=== PATIENT | male | born 1940 | race Caucasian/White ===

== ENCOUNTER → 2018-09-04 | Day surgery (SDC) | payer MEDICARE, BC ==
[2006-03-13 12:45] VITALS: TEMP 100.7
[~2018-09-04] MED LIST: ASPIRIN 81M81 MG/TA2 PO; BETAPACE 120MG120 MG PO; CELEBREX 200MG200 MG PO; CENA K20 MEQ/15 PO; CEPHALEXIN500 M1 PO; CORDARONE200 MG/TAB PO; COUMADIN 2MG2 MG/TAB PO; COUMADIN 5MG5 MG/TAB PO; FISH OIL500 MG PO; LASIX 40MG TABL40 MG PO; LOVENOX120 MG/0.8 SQ; MASON NATURAL1200 MG PO; MULTI VITAMINS1 TAB PO; OXY IR5 MG PO; TOPROL XL 50MG50 MG PO; TRIAMC 0.1 454 TOP; ZESTRIL30 MG PO; ZIAC 5/6.25MG T1 TAB PO; ZOCOR 40MG40 MG PO; ZYLOPRIM 300MG300 MG PO
== END ==
LOC: SDCO 06:00
DX: Z12.11 Encounter for screening for malignant neoplasm of colon (principal); Z86.010 Personal history of colon polyps; K57.30 Diverticulosis of large intestine without perforation or abscess without bleeding; M10.9 Gout, unspecified; I10 Essential (primary) hypertension; E78.00 Pure hypercholesterolemia, unspecified; I48.91 Unspecified atrial fibrillation; Z79.899 Other long term (current) drug therapy; Z79.01 Long term (current) use of anticoagulants; Z79.82 Long term (current) use of aspirin
CPT/HCPCS: J2250; J2405; J3010

== ENCOUNTER 2020-05-19 13:24 | Inpatient (IN) | payer MEDICARE, BC ==
[~2020-05-19] VITALS: Ht 182.9 cm; Wt 105.9 kg
[2020-05-19 14:04] LABS: BASO % 0.2 % (0.0-2.0); GRAN # 9.3 (1.4-6.5); GRAN % 76.9 % (42.2-75.2); HEMATOCRIT 39.9 % (42.0-52.0); HEMOGLOBIN 14.1 g/dl (13.5-18.0); LYMPH % 16.7 % (20.0-51.0); MEAN CELL VOLUME 91 fl (80.0-100.0); MEAN CORPUSCULAR HEMOGLOBIN 32 pg (27.0-31.0); MEAN CORPUSCULAR HGB CONC 35 g/dl (33.0-37.0); MEAN PLATELET VOLUME 9.5 fl (7.4-10.4); MONO # 0.7 (0.1-0.6); MONO % 5.9 % (1.7-9.3); PLATELET COUNT 166 K/mm3 (130-400); RED BLOOD COUNT 4.37 M/mm3 (4.20-5.60); REDCELL DISTRIBUTION WIDTH-CV 12.6 % (11.5-14.5)
[2020-05-19 14:09] LABS: INR 1.2 (0.8-3.0)
[2020-05-19 14:49] LABS: ALANINE AMINOTRANSFERASE 18 U/L (4-49); ALBUMIN 4.1 gm/dL (3.5-5.0); ALKALINE PHOSPHATASE 80 U/L (50-136); ANION GAP 10 mmol/L (7-16); AST,SGOT 43 U/L (15-37); BILIRUBIN,TOTAL 0.6 mg/dL (0.0-1.0); BLOOD UREA NITROGEN 16 mg/dL (9-20); CALCIUM 9.1 mg/dL (8.4-10.2); CARBON DIOXIDE 27 mmol/L (22-30); CHLORIDE 93 mmol/L (98-107); CREATININE, serum 0.85 (0.66-1.25); GLUCOSE 146 mg/dL (74-106); SODIUM 130 mmol/L (137-145); TOTAL PROTEIN 7.2 gm/dL (6.4-8.2)
[2020-05-19 14:59] LABS: C-REACTIVE PROTEIN < 0.5 mg/dL (0.0-0.9)
[2020-05-19 17:11] LABS: COLLECTION METHOD CLEAN CATCH
[2020-05-19 17:17] LABS: MUCOUS Present /lpf; PH 6 (5-8); SQUAMOUS EPITHELIAL None Seen /hpf; URINE APPEARANCE Clear; URINE BACTERIA None Seen /hpf; URINE BILIRUBIN Negative (NEGATIVE); URINE BLOOD Negative (NEGATIVE); URINE COLOR Yellow; URINE GLUCOSE Negative (NEGATIVE); URINE KETONE Negative (NEGATIVE); URINE LEUKOCYTE ESTERASE Negative (NEGATIVE); URINE NITRATE Negative (NEGATIVE); URINE PROTEIN(semi-quant) Negative (NEGATIVE); URINE RBC 0-2 /hpf; URINE UROBILINOGEN Negative (NEGATIVE)
--- NOTE | 2020-05-19 20:15 | NUR ---
Pt arrived to room at this time from the ED. Pt alert and oriented x3. Neuro check WNL other than pt experiencing some expressive aphasia. Denies pain. INT to left AC CDI. Pt denies any other needs at this time. Bed alarm on. Call light within reach. Will continue to monitor
[2020-05-19 21:28] VITALS: BP 174/83; PULSE 72; TEMP 101.2
--- NOTE | 2020-05-19 23:17 | NUR ---
Admission B form completed and documented. Pt alert and oriented x3. Neuro check remains WNL other than expressive aphasia. Pt denies pain. Pt not able to verify home medications with RN. Med rec reviewed and updated with patients over the phone who was able to verify medications and doses. Pt denies any needs/concerns. Call light within reach. Bed alarm on. Will continue to monitor.
[2020-05-19 23:34] VITALS: BP 130/68; PULSE 71; TEMP 99.4
--- NOTE | 2020-05-19 23:41 | NUR ---
Report given to LORY Sotomayor
[2020-05-20] VITALS (8 sets, daily range): BP systolic 129–162; BP diastolic 75–88; PULSE 77–94; TEMP 99.6–102.8
--- NOTE | 2020-05-20 02:09 | NUR ---
Resting in bed asleep. Call light in reach.
--- NOTE | 2020-05-20 04:00 | NUR ---
Resting in bed. Denies needs. Call light in reach.
--- NOTE | 2020-05-20 06:33 | NUR ---
Patient temp this AM 102.7. Given PRN tylenol and decreased room temp. Otherwise uneventful night. Resting in bed this AM. Call light in reach.
[2020-05-20 06:49] LABS: BASO % 0.3 % (0.0-2.0); EOS % 0.1 % (0-4.0); GRAN # 7.7 (1.4-6.5); GRAN % 66.1 % (42.2-75.2); HEMATOCRIT 37.5 % (42.0-52.0); HEMOGLOBIN 13.3 g/dl (13.5-18.0); LYMPH # 2.9 (1.2-3.4); LYMPH % 24.4 % (20.0-51.0); MEAN CELL VOLUME 91 fl (80.0-100.0); MEAN CORPUSCULAR HEMOGLOBIN 32 pg (27.0-31.0); MEAN CORPUSCULAR HGB CONC 36 g/dl (33.0-37.0); MEAN PLATELET VOLUME 10.6 fl (7.4-10.4); MONO % 8.8 % (1.7-9.3); PLATELET COUNT 145 K/mm3 (130-400); RED BLOOD COUNT 4.12 M/mm3 (4.20-5.60); REDCELL DISTRIBUTION WIDTH-CV 12.6 % (11.5-14.5)
--- NOTE | 2020-05-20 06:51 | NUR ---
Report given to LORY Herr
[2020-05-20 07:02] LABS: ALBUMIN 3.6 gm/dL (3.5-5.0); BILIRUBIN,TOTAL 0.8 mg/dL (0.0-1.0); CALCIUM 8.7 mg/dL (8.4-10.2); CHOLESTEROL RISK RATIO 4.4; CREATININE, serum 0.77 (0.66-1.25); POTASSIUM 3.7 mmol/L (3.4-5.0); TOTAL PROTEIN 6.4 gm/dL (6.4-8.2)
--- NOTE | 2020-05-20 10:05 | NUR ---
Client resting in bed comfortably upon enter the room. Client alert and oriented. No signs and sympotoms of pain or discomfort. Client denies pain. Client walks to the bathroom independently to void with steady gait. Scheduled morning meds given. Client tolerated well. Call light within reach. Client denied any need at this time.
--- NOTE | 2020-05-20 10:33 | NUR ---
Received bedside report from awake overnight counselor Bunny
--- NOTE | 2020-05-20 13:08 | NUR ---
attempted to call but there was no answer.
--- NOTE | 2020-05-20 13:31 | NUR ---
Vancomycin Initial Dosing Pharmacy Note Ordering provider: Bro Esteves MD Indication/duration: Bloodstream infection, FUO LABS: eCrCl~90 mL/min Recommendation: Loading dose: 2 grams 05/20/20 Maintenance dose: 1 gram every 12 hours Trough goal: 15-20 ug/mL Pharmacy will continue to follow.
--- NOTE | 2020-05-20 18:31 | NUR ---
Patient appears confused and oriented to person only at 1800. Left hand IV site swollen and infiltrated. Left hand IV removed. Elevated left hand and applied warm compression. Call Left within reach and bed at lowest setting. Fall precaution maintained. Isolation precuation maintained. Will give report to shift leader RN.
[2020-05-20 20:11] LABS: PROCALCITONIN <0.05 ng/mL (0.00-0.09)
--- NOTE | 2020-05-20 21:30 | NUR ---
Resting in bed. Assessment complete. Lungs diminished. Heart sounds normal. Bowels active x4. Pulses present throughout. No edema noted. INT left AC infusing. Denies pain. Patient alert to self, confused otherwise. Bed alarm in place. Denies needs. Call light in reach.
--- NOTE | 2020-05-20 23:25 | NUR ---
Resting in bed. Denies needs. Call light in reach.
[2020-05-21] VITALS (7 sets, daily range): BP systolic 118–155; BP diastolic 66–90; PULSE 73–87; TEMP 98.6–102.7
--- NOTE | 2020-05-21 01:52 | NUR ---
Temp 100.6. Given PRN tylenol.
--- NOTE | 2020-05-21 06:07 | NUR ---
Patient had uneventful night. Resting in bed this AM. Call light in reach.
--- NOTE | 2020-05-21 06:08 | NUR ---
Patient required tylenol for fevers throughout night. Otherwise uneventful night. Resting in bed this AM. Call light in reach.
[2020-05-21 06:52] LABS: BASO % 0.4 % (0.0-2.0); EOS % 0.1 % (0-4.0); GRAN # 5.7 (1.4-6.5); GRAN % 58.1 % (42.2-75.2); HEMATOCRIT 37.7 % (42.0-52.0); HEMOGLOBIN 13.4 g/dl (13.5-18.0); LYMPH # 2.9 (1.2-3.4); LYMPH % 28.8 % (20.0-51.0); MEAN CELL VOLUME 90 fl (80.0-100.0); MEAN CORPUSCULAR HEMOGLOBIN 32 pg (27.0-31.0); MEAN CORPUSCULAR HGB CONC 36 g/dl (33.0-37.0); MONO # 1.2 (0.1-0.6); MONO % 12.3 % (1.7-9.3); PLATELET COUNT 153 K/mm3 (130-400); RED BLOOD COUNT 4.17 M/mm3 (4.20-5.60); REDCELL DISTRIBUTION WIDTH-CV 12.4 % (11.5-14.5)
--- NOTE | 2020-05-21 07:00 | NUR ---
Report received from LORY Sotomayor. PT in bed resting, denies needs, will continue to monitor.
--- NOTE | 2020-05-21 07:09 | NUR ---
Report given to LORY Herr
[2020-05-21 07:15] LABS: ALBUMIN 3.4 gm/dL (3.5-5.0); BILIRUBIN,TOTAL 0.9 mg/dL (0.0-1.0); CALCIUM 8.6 mg/dL (8.4-10.2); CREATININE, serum 0.89 (0.66-1.25); MAGNESIUM 2.1 mg/dL (1.6-2.3); POTASSIUM 3.5 mmol/L (3.4-5.0); TOTAL PROTEIN 6.1 gm/dL (6.4-8.2)
--- NOTE | 2020-05-21 08:29 | NUR ---
Assessment charted. PT continues to be febrile this am, states he has no idea he is febrile. Able to answer all questons appropriately but does need some time to gather the answers before expressing them. Denies pain, denies needs, nausea or diarrhea. Taking PO well. Resting in bed. INT to LA/c and RFA. Will continue to monitor.
--- NOTE | 2020-05-21 13:29 | NUR ---
Patient could not tolerate interview at this time, and so SW contacted patients Alyse to complete intake interview. Patient currently resides in [facility] with his Alyse [phone] as care support and EMR. Patient was independent with ADL's and patients is listed as DPOA as well as his children. Patient does not utilize any DME, and his PCP is Dr. Marks, with no upcoming appointments. Patient gets his mediactions from [employer], and [employer] with no concerns. Patients was interested in possible home health services, however would need more information on what was available. She did indicated that he had services before however she did not remember who with.We did discuss a couple over the phone. However she opted to wait until it was determined when she would be able to come up to the hospital to see her . She indicated that when she spoke to the nurse before she was informed that he had a fever. SW will continue to follow.
--- NOTE | 2020-05-21 17:24 | NUR ---
PT moved over to regular medical unit today when COVID19 results were negative. Pt doing well, updated daughter and of changes and results and status update. Pt did well most of day but became increasingly confused this evening and has been elevated back to a high fall risk as he almost fell out of bed this evening. Will monitor and give bedside shift report to [facility] nurse who will resume car.e
[2020-05-22] VITALS (8 sets, daily range): BP systolic 103–128; BP diastolic 58–90; PULSE 71–82; TEMP 98.2–100.1
[2020-05-22 06:49] LABS: BASO # 0.1 (0.0-0.2); BASO % 0.6 % (0.0-2.0); EOS % 0.2 % (0-4.0); GRAN # 5.4 (1.4-6.5); HEMOGLOBIN 12.8 g/dl (13.5-18.0); LYMPH # 2.9 (1.2-3.4); MEAN CELL VOLUME 90 fl (80.0-100.0); MEAN CORPUSCULAR HEMOGLOBIN 33 pg (27.0-31.0); MEAN CORPUSCULAR HGB CONC 37 g/dl (33.0-37.0); MEAN PLATELET VOLUME 10.2 fl (7.4-10.4); MONO # 1.1 (0.1-0.6); MONO % 11.9 % (1.7-9.3); PLATELET COUNT 151 K/mm3 (130-400); RED BLOOD COUNT 3.87 M/mm3 (4.20-5.60); REDCELL DISTRIBUTION WIDTH-CV 12.7 % (11.5-14.5)
[2020-05-22 07:00] LABS: HEMATOCRIT 34.7 % (42.0-52.0)
--- NOTE | 2020-05-22 07:00 | NUR ---
Report received from LORY Rodriguez. PT in bed resting, awakens easily upon entry, will continue to monitor.
[2020-05-22 07:02] LABS: ALBUMIN 3.1 gm/dL (3.5-5.0); BILIRUBIN,TOTAL 0.7 mg/dL (0.0-1.0); CREATININE, serum 0.87 (0.66-1.25); TOTAL PROTEIN 5.7 gm/dL (6.4-8.2)
[2020-05-22 07:04] LABS: POTASSIUM 2.8 mmol/L (3.4-5.0)
[2020-05-22 07:16] LABS: MAGNESIUM 2.1 mg/dL (1.6-2.3)
--- NOTE | 2020-05-22 07:25 | NUR ---
CHANGE OF SHIFT REPORT GIVEN TO DAY SHIFT, CAT.
[2020-05-22 09:50] LABS: INR 1.4 (0.8-3.0); PROTHROMBIN TIME 15.3 SECONDS (9.7-12.8)
--- NOTE | 2020-05-22 10:08 | NUR ---
Vancomycin Follow-up Pharmacy Note Current regimen: VANCOMYCIN 1G Q12H Vancomycin trough: 9 Adjustments: INCREASE TO VANCOMYCIN 1.25G Q12H
--- NOTE | 2020-05-22 11:56 | NUR ---
First visit from the fibreglass lay up worker. No needs right now.
--- NOTE | 2020-05-22 13:11 | NUR ---
Assessment charted. pT curretnly off floor for procedure. Appeared to be more confused this amorning, had intermittent aphasia with answering questions but able to eventually answer all questions. Denies pian, still having fevers at times. INT removed to RFA d/t infiltration. IVF to LAC. WIll continue to monitor.
--- NOTE | 2020-05-22 19:48 | NUR ---
Pt has done well this afternoon. UPdate provided to both Mohini and Alyse Cullen at bedside this afternoon. Pt continues to have intermittent aphasia and was unsteady up to bathroom this evening. IV potassium completing. Denies pain, taking PO well, bedside shift report given to nightshift nurse who will resume care.
[2020-05-23 00:27] VITALS: BP 117/66; PULSE 72; TEMP 98.5
[2020-05-23 04:18] VITALS: BP 106/60; PULSE 74; TEMP 98.6
[2020-05-23 07:06] LABS: BASO % 0.5 % (0.0-2.0); EOS # 0.1 (0.0-0.7); GRAN # 4.6 (1.4-6.5); GRAN % 58.1 % (42.2-75.2); HEMATOCRIT 34.3 % (42.0-52.0); HEMOGLOBIN 11.9 g/dl (13.5-18.0); LYMPH # 2.4 (1.2-3.4); LYMPH % 30.7 % (20.0-51.0); MEAN CELL VOLUME 91 fl (80.0-100.0); MEAN CORPUSCULAR HEMOGLOBIN 32 pg (27.0-31.0); MEAN CORPUSCULAR HGB CONC 35 g/dl (33.0-37.0); MEAN PLATELET VOLUME 10.3 fl (7.4-10.4); MONO # 0.7 (0.1-0.6); MONO % 9.3 % (1.7-9.3); PLATELET COUNT 136 K/mm3 (130-400); RED BLOOD COUNT 3.76 M/mm3 (4.20-5.60); REDCELL DISTRIBUTION WIDTH-CV 13.1 % (11.5-14.5)
[2020-05-23 07:08] LABS: INR 1.3 (0.8-3.0)
[2020-05-23 07:24] LABS: CALCIUM 7.9 mg/dL (8.4-10.2); CREATININE, serum 0.86 (0.66-1.25); MAGNESIUM 2.2 mg/dL (1.6-2.3); POTASSIUM 3.6 mmol/L (3.4-5.0)
[2020-05-23 07:31] VITALS: BP 115/70; PULSE 80; TEMP 97.9
--- NOTE | 2020-05-23 08:04 | NUR ---
CHANGE OF SHIFT REPORT GIVEN TO DAY SHIFT NURSE, JOHN.
--- NOTE | 2020-05-23 10:56 | NUR ---
Pt assessment completed and charted, medications administered per sep. Pt alert and partially oriented, some aphasia noted. Pt occasionally has difficulty finding thoughts. Speech is clear, strength WNL, no difficulty swallowing. Pt denies pain, dizziness, N/V/D, chest pain. Pt ambulated w/PT to bathroom, per PT- pt did ok, assessment yesterday stated pt did well, today pt seemed a little off balance. Pt did ok w/ SBA. LAC IV flushes well, no issues, Vanc started. No edema noted, LS cta, BS active X4, pulses strong bilaterally. HR irregular, pt on tele. No further needs expressed at this time. Call light within reach.
[2020-05-23 12:02] VITALS: BP 92/60; PULSE 74; TEMP 97.9
[2020-05-23 12:25] LABS: LYME DISEASE ANTIBODIES Negative (Negative)
--- NOTE | 2020-05-23 13:27 | NUR ---
Room Service Runner contacted patient's home phone and spoke with patient's daughter Mohini (ph#[phone]) about discharge plan. ROSEMARIE reviewed PT note that recommends Inpatient Rehab and Mohini thought this was a good idea. Mohini advised she tried to speak with her mother, Alyse about adding an additional handrail on their indoor stairs but Alyse thinks this will upset patient. Mohini states patient likes to go downstairs to the office to work on the computer. Mohini advised they are talking about moving the computer upstairs to decrease the amount patient has to use the stairs. ROSEMARIE contacted Jeremiah Holcomb Via [facility] Director to give referral.
[2020-05-23 15:45] VITALS: BP 105/61; PULSE 73; TEMP 97.4
[2020-05-23 20:31] VITALS: BP 123/75; PULSE 70; TEMP 99.3
--- NOTE | 2020-05-23 21:00 | NUR ---
Pt sitting up in bed he is A/O x2, unable to recall the president. Denies pain at this time. No N/V. Neuro checks WNL. POC discussed with patient who verbalizes understanding. Has no further needs at this time.
[2020-05-24 00:07] VITALS: BP 120/68; PULSE 76; TEMP 99.1
[2020-05-24 04:14] VITALS: BP 96/58; PULSE 70; TEMP 98.6
--- NOTE | 2020-05-24 06:20 | NUR ---
Pt slept well through the night. Had no complaints of pain. Neuro checks WNL. Pt asking why he is unable to go home and do PT rather than IPR. Discussed POC with him. He verbalized understanding. NO needs at this time. Will continue to monitor.
[2020-05-24 07:10] LABS: CREATININE, serum 0.83 (0.66-1.25); POTASSIUM 3.6 mmol/L (3.4-5.0)
[2020-05-24 07:15] LABS: INR 1.7 (0.8-3.0); PROTHROMBIN TIME 19.3 SECONDS (9.7-12.8)
[2020-05-24 08:52] VITALS: BP 117/64; PULSE 68; TEMP 98.4
--- NOTE | 2020-05-24 11:06 | NUR ---
Pt assessment completed and charted, medications administered per sep. Pt A&O, independent in room, on room air, breathing even and unlabored. Pt denies dizziness, SOB, N/V/D. Pt ambulated w/ therapy, did well SBA/minimal contact. Per PT pt had some swaying but no obvious loss of balance. Pt has LAC INT IV that flushes well, no issues noted. HRRR, denies chest pain, palpitations. BS active X4. No needs expressed at this time. Pt resting comfortably in bed watching tv.
[2020-05-24 11:54] VITALS: BP 109/63; PULSE 69; TEMP 98
[2020-05-24] MEDS ORDERED: COUMADIN 6MG6 MG/TAB PO (15:06)
[2020-05-24] MEDS ORDERED: LOVENOX 100100 MG/ML SQ (15:09)
[2020-05-24] MEDS ORDERED: BETAPACE160 MG PO (15:11)
--- NOTE | 2020-05-24 16:34 | NUR ---
Ladle Puller collaborated with Aich[facility] Director who advised they cannot accept as patient is now too functional. ROSEMARIE met with patient and his , Alyse who feel comfortable returning home today as patient is medically cleared for discharge. ROSEMARIE spoke with patient about home health services and patient was agreeable to this. ROSEMARIE reviewed Medicare.gov list of agencies and patient's Alyse selected [facility]. Patient is agreeable to this. ROSEMARIE contacted Laura at [facility] and faxed referral. Laura advised they are able to accept. ROSEMARIE faxed discharge orders and patient will return home this afternoon with [facility] for PT/OT/ST. ROSEMARIE contacted patient's daughter, Mohini to provide update on discharge plan. Mohini is agreeable to this plan. ROSEMARIE also contacted LORY Germain-CM at [facility] to provide update on discharge. No additional needs at this time.
--- NOTE | 2020-05-24 17:51 | NUR ---
Pt discharge instructions discussed and reviewed w/ patient and at bedside. Daughter was also notified. Pt and verbalized understanding, all questions answered. No further needs. LAC IV dc'd w/o complications and catheter tip intact. Pt escorted out via WC w/ PEPITO An.
== END 2020-05-24 17:53 | disposition home health service (06) | DRG 65 ==
LOC: COL.ER 13:24 → MEDICAL 17:11 → PEDS 23:47 → MEDICAL 05-21 10:44
PROVIDERS: Emergency Medicine; Family Medicine; Hospitalist; Internal Medicine Infectious Disease; Physician Assistant; ADMIT Internal Medicine
DX: I63.89 Other cerebral infarction (principal); E87.1 Hypo-osmolality and hyponatremia; I48.0 Paroxysmal atrial fibrillation; E87.6 Hypokalemia; E78.5 Hyperlipidemia, unspecified; R50.9 Fever, unspecified; R47.01 Aphasia; M10.9 Gout, unspecified; Z95.2 Presence of prosthetic heart valve; Z79.01 Long term (current) use of anticoagulants; Z89.422 Acquired absence of other left toe(s); Z79.82 Long term (current) use of aspirin; Z95.0 Presence of cardiac pacemaker
CPT/HCPCS: 99222-AI; 99232-AI; 99233-AI; 99239; J0696; J1650; J2704; J3370; J3480; J7050; Q9967

== ENCOUNTER 2020-05-28 23:06 | Observation (INO) | payer MEDICARE, BC ==
[~2020-05-28] VITALS: Ht 182.9 cm; Wt 102.7 kg
[~2020-05-28 23:06] MED LIST changes: +BETAPACE160 MG PO; +COUMADIN 6MG6 MG/TAB PO; +LOVENOX 100100 MG/ML SQ
[2020-05-28 23:52] LABS: BASO # 0.1 (0.0-0.2); BASO % 0.8 % (0.0-2.0); EOS # 0.3 (0.0-0.7); EOS % 3.5 % (0-4.0); GRAN # 4.7 (1.4-6.5); GRAN % 59.4 % (42.2-75.2); HEMOGLOBIN 13.5 g/dl (13.5-18.0); LYMPH # 2.1 (1.2-3.4); LYMPH % 27.2 % (20.0-51.0); MEAN CELL VOLUME 93 fl (80.0-100.0); MEAN CORPUSCULAR HEMOGLOBIN 32 pg (27.0-31.0); MEAN CORPUSCULAR HGB CONC 35 g/dl (33.0-37.0); MEAN PLATELET VOLUME 9.6 fl (7.4-10.4); MONO # 0.7 (0.1-0.6); MONO % 8.8 % (1.7-9.3); PLATELET COUNT 246 K/mm3 (130-400); REDCELL DISTRIBUTION WIDTH-CV 12.6 % (11.5-14.5)
[2020-05-28 23:53] LABS: INR 3.2 (0.8-3.0); PROTHROMBIN TIME 36.5 SECONDS (9.7-12.8)
[2020-05-29] LABS: ALBUMIN 4.1 gm/dL (3.5-5.0); BILIRUBIN,TOTAL 0.5 mg/dL (0.0-1.0); CREATININE, serum 0.99 (0.66-1.25); POTASSIUM 4.2 mmol/L (3.4-5.0)
[2020-05-29 03:47] VITALS: BP 145/73; PULSE 71; TEMP 99.6
--- NOTE | 2020-05-29 04:28 | NUR ---
PT ADMITTED WITH AMS. PT ABLE TO ANSWER SIMPLE QUESTIONS BUT DOESN'T REMEMBER HIS HISTORY WELL OR KNOW WHY HE IS HERE. NEURO CHECK WAS NORMAL. SEE 5 PAGE ASSESSMENT. PT DID NOT KNOW ANYTHING ABOUT HIS HOME MEDICATIONS.
--- NOTE | 2020-05-29 05:54 | NUR ---
PT GOT OUT OF BED, SETTING OFF BED ALARM. PT'S GAIT STEADY. NO SIGNIFICANT CHANGE IN MENTAL STATUS.
[2020-05-29 07:36] VITALS: BP 114/68; PULSE 70; TEMP 98.9
--- NOTE | 2020-05-29 10:10 | NUR ---
SHIFT ASSESSMENT COMPLETED AT THIS TIME. AM PO MEDICATIONS HELD UNTIL PATIENT IS SEEN BY PHYSICIAN AND EVALUATED BY SPEECH THERAPY. PATIENT DENIES PAIN. PATIENT IS ABLE TO STATE NAME, , AGE. PATIENT DOES NOT KNOW WHAT YEAR IT IS, WHAT TOWN HE IS IN OR SITUATION. PRESENT AT THE BEDSIDE. CALL LIGHT IN REACH. BED ALARM ON.
--- NOTE | 2020-05-29 10:44 | NUR ---
SPEECH THERAPIST BAKARI CALLED AND NOTIFIED OF SWALLOW STUDY ORDER AND CONSULT.
[2020-05-29 12:31] VITALS: BP 110/65; PULSE 71; TEMP 98.8
--- NOTE | 2020-05-29 14:24 | NUR ---
[facility] CALLED AND NOTIFIED THAT SPEECH THERAPY RECOMMENDED AN REGULAR DIET WITHOUT ANY MODIFICATIONS. PATIENTS CHART INDICATED THAT HE WAS TO BE MONITORED ON TELEMETRY. PATIENT IS NOT CURRENTLY ON A TELE MONITOR. TORB TO START THE PATIENT ON TELE, AHA DIET, AND TO DISCONTINUE RN DYSPHAGIA SCREENING Q1H FROM [facility] L[facility] TO THIS NURSE.
--- NOTE | 2020-05-29 14:43 | NUR ---
[facility] CALLED AND NOTIFIED THAT THERE ARE NO VTE ORDERS FOR PATIENT. PATIENTS LAST SET OF VITALS WERE 110/65 WITH HEART RATE OF 71. TORB TO GIVE ALL AM MEDICATIONS NOW.
--- NOTE | 2020-05-29 14:45 | NUR ---
ROSEMARIE met with the patient and his , Alyse (ph#[phone]), to discuss discharge plan. The patient lives in [place] with his . He reports independence with ADLs and does not have any DME. The patient's PCP is Dr. Rusty Salazar and he receives his medications from [facility]. Alyse reports no difficulties obtaining his meds. The patient does not have a DPOA-HC in EMR, but Alyse reports that the patient does have a DPOA-HC completed and that she is the patient's DPOA-HC. Alyse reports that the plan is for the patient to return back home with her upon discharge. PT/OT recommend home with supervision and home health. ROSEMARIE discussed this with the patient and Alyse. Alyse reports that she is open to home health and had already been talking to [facility] for the patient. ROSEMARIE contacted and faxed referral to Laura at [facility]. Laura reports that they already have the patient on for services. They started services last and will be able to resume services for the patient upon discharge. ROSEMARIE to update the patient's and will continue to follow.
[2020-05-29 16:13] VITALS: BP 117/74; PULSE 70; TEMP 99
--- NOTE | 2020-05-29 19:26 | NUR ---
PATIENT HAS DENIED PAIN THROUGHOUT THE DAY. NEURO CHECKS UNCHANGED. PATIENT CURRENTLY RESTING IN BED. BED ALARM ON. CALL LIGHT IN REACH. PATIENT RECLINED IN BED AND INTRODUCED TO NIGHT NURSE.
[2020-05-29 19:48] VITALS: BP 135/73; PULSE 70; TEMP 102
--- NOTE | 2020-05-29 19:55 | NUR ---
Resting in bed. Assessment complete. Lungs clear. Heart sounds normal. Bowels active x4. Pulses present throughout. No edema noted. INT left AC flushed without complications. Denies pain. Patient temp 102.0. Notified Karla ALBA Awaiting orders. Denies other needs at this time. Call light in reach.
--- NOTE | 2020-05-29 22:21 | NUR ---
Patient daughter called for update. Updated at this time. Questions answered. Denies further needs at this time.
[2020-05-29 22:30] VITALS: TEMP 100.3
[2020-05-30] VITALS (7 sets, daily range): BP systolic 90–139; BP diastolic 54–75; PULSE 70–73; TEMP 97.5–99.2
--- NOTE | 2020-05-30 00:12 | NUR ---
Resting in bed. Denies needs. Call light in reach.
[2020-05-30 03:23] LABS: COLLECTION METHOD CLEAN CATCH
[2020-05-30 03:28] LABS: MUCOUS Present /lpf; PH 7 (5-8); SQUAMOUS EPITHELIAL None Seen /hpf; URINE APPEARANCE Clear; URINE BACTERIA None Seen /hpf; URINE BILIRUBIN Negative (NEGATIVE); URINE BLOOD Negative (NEGATIVE); URINE COLOR Yellow; URINE GLUCOSE Negative (NEGATIVE); URINE KETONE Negative (NEGATIVE); URINE LEUKOCYTE ESTERASE Negative (NEGATIVE); URINE NITRATE Negative (NEGATIVE); URINE PROTEIN(semi-quant) Negative (NEGATIVE); URINE RBC 0-2 /hpf; URINE UROBILINOGEN Negative (NEGATIVE)
--- NOTE | 2020-05-30 05:50 | NUR ---
Patient febrile during night. Otherwise uneventful night. Resting in bed this AM. Call light in reach.
--- NOTE | 2020-05-30 07:23 | NUR ---
Report given to LORY Olivas
[2020-05-30 08:59] LABS: ALBUMIN 3.5 gm/dL (3.5-5.0); BILIRUBIN,TOTAL 0.5 mg/dL (0.0-1.0); CALCIUM 8.8 mg/dL (8.4-10.2); CREATININE, serum 0.91 (0.66-1.25); POTASSIUM 4.2 mmol/L (3.4-5.0); TOTAL PROTEIN 6.4 gm/dL (6.4-8.2)
[2020-05-30 09:03] LABS: BASO % 0.6 % (0.0-2.0); EOS # 0.2 (0.0-0.7); EOS % 4.4 % (0-4.0); GRAN # 3.3 (1.4-6.5); GRAN % 63.1 % (42.2-75.2); HEMOGLOBIN 12.7 g/dl (13.5-18.0); LYMPH # 1.2 (1.2-3.4); LYMPH % 23.8 % (20.0-51.0); MEAN CELL VOLUME 93 fl (80.0-100.0); MEAN CORPUSCULAR HEMOGLOBIN 32 pg (27.0-31.0); MEAN CORPUSCULAR HGB CONC 35 g/dl (33.0-37.0); MEAN PLATELET VOLUME 9.6 fl (7.4-10.4); MONO # 0.4 (0.1-0.6); MONO % 7.7 % (1.7-9.3); PLATELET COUNT 202 K/mm3 (130-400); RED BLOOD COUNT 3.96 M/mm3 (4.20-5.60); REDCELL DISTRIBUTION WIDTH-CV 12.7 % (11.5-14.5)
[2020-05-30 09:05] LABS: HEMATOCRIT 36.7 % (42.0-52.0)
--- NOTE | 2020-05-30 10:30 | NUR ---
Patient alert and oriented, answers questions appropriately. See assessment. No aphasia noted, although with longer conversation, does need redirected to conversation. Hand corporate strategy associate equal, gait shuffling. No c/o at this time.
[2020-05-30 10:45] LABS: INR 2.5 (0.8-3.0); PROTHROMBIN TIME 28.3 SECONDS (9.7-12.8)
--- NOTE | 2020-05-30 11:00 | NUR ---
Dr Hoang notified of consult.
--- NOTE | 2020-05-30 16:17 | NUR ---
Vancomycin Initial Dosing Pharmacy Note Ordering provider: MD SAUL Indication/duration: EMPIRIC Relevant comorbidities: LABS: WBC 5.2, SCr 0.9, CrCl 70, TMAX 102, BC PENDING Recommendation: VANCOMYCIN 15 MG/KG Loading dose: 2 grams Maintenance dose: 1.5 grams every 12 hours Trough goal: 15-20 ug/mL. TROUGH 06/01 @ 1630
--- NOTE | 2020-05-30 20:15 | NUR ---
Initial shift assessment done- denies pain, states he feels fine tonight, hand stereoplotter operator are equal, no deficits except for at times difficulty finding the right words- speech slow at times. PICC to ELADIO. no requests. Hopes to go home tomorrow.
[2020-05-31 04:17] VITALS: BP 135/68; PULSE 71; TEMP 99
--- NOTE | 2020-05-31 05:30 | NUR ---
Slept fair during the night- Up to bathroom with assist- steady . VSS, temp 99.2. Did note a red rash to bilateral arms during the night-- Karla BOWERS was notified- she contacted pharmacy and order was put in to run the 0500 Vancomycin at 1/2 normal rate- will continue to assess.. Pt denies itching with rash and did not know about it until I showed it to him- denies pain. States 'Im fine"
[2020-05-31 06:27] LABS: BASO % 0.5 % (0.0-2.0); EOS # 0.3 (0.0-0.7); EOS % 4.5 % (0-4.0); GRAN % 64.7 % (42.2-75.2); HEMOGLOBIN 11.7 g/dl (13.5-18.0); LYMPH # 1.4 (1.2-3.4); LYMPH % 22.9 % (20.0-51.0); MEAN CELL VOLUME 92 fl (80.0-100.0); MEAN CORPUSCULAR HEMOGLOBIN 32 pg (27.0-31.0); MEAN CORPUSCULAR HGB CONC 35 g/dl (33.0-37.0); MEAN PLATELET VOLUME 9.7 fl (7.4-10.4); MONO # 0.4 (0.1-0.6); MONO % 7.1 % (1.7-9.3); PLATELET COUNT 199 K/mm3 (130-400); RED BLOOD COUNT 3.63 M/mm3 (4.20-5.60); REDCELL DISTRIBUTION WIDTH-CV 12.6 % (11.5-14.5)
[2020-05-31 06:28] LABS: INR 2.3 (0.8-3.0); PROTHROMBIN TIME 25.4 SECONDS (9.7-12.8)
[2020-05-31 06:34] LABS: CALCIUM 8.5 mg/dL (8.4-10.2); CREATININE, serum 0.77 (0.66-1.25); POTASSIUM 4.2 mmol/L (3.4-5.0)
[2020-05-31 06:35] LABS: HEMATOCRIT 33.3 % (42.0-52.0)
[2020-05-31 08:45] VITALS: BP 123/76; PULSE 71; TEMP 98.8
[2020-05-31 12:00] VITALS: BP 117/65; PULSE 69; TEMP 99.9
--- NOTE | 2020-05-31 13:27 | NUR ---
The ID doctor is recommending two weeks of IV Acyclovir every 8 hours. ROSEMARIE contacted the patient's and daughter, Mohini, to inform and to discuss the options of the IV antibiotic in the home with home health, as outpatient in the Express Unit, and SNF. The patient's and daughter report that they would prefer to have the patient go to SNF at [facility] to receive the antibiotic there and receive more therapy. The patient had a three midnight, inpatient stay from 05/19-05/24. ROSEMARIE updated the clinical team. ROSEMARIE contacted and faxed a referral to Bita at [facility]. SW awaiting their screen.
[2020-05-31] MEDS ORDERED: ZOVIRAX INJ V1000 MG IV (14:59)
[2020-05-31] MEDS ORDERED: TYLENOL 325MG325 MG PO (15:00)
--- NOTE | 2020-05-31 15:01 | NUR ---
Bita, at [facility], reports that they are able to accept the patient today. ROSEMARIE notified the clinical team. SW contacted and updated the patient's and daughter. They are both agreeable to the transfer. SW updated the patient and he is also agreeable to the transfer. The patient is to discharge today, 05/31, to [facility] for a skilled stay. Transportation was scheduled at 1545, via [facility]. ROSEMARIE informed the patient, his RN, and the patient's and daughter over the phone. They were all agreeable to the time. No additional needs at this time.
[2020-05-31 15:28] VITALS: BP 117/65; PULSE 69; TEMP 99.9
--- NOTE | 2020-05-31 15:45 | NUR ---
Patient transferred to [facility] at 1545 via wheelchair with transportation staff. Attepted x1 to call report.
== END 2020-05-31 15:45 ==
LOC: COL.ER 23:06 → JCC 05-29 01:15
PROVIDERS: Emergency Medicine; Hospitalist; Nurse Practitioner Family; ADMIT Student in an Organized Health Care Education/Training Program
DX: I69.320 Aphasia following cerebral infarction (principal); I11.0 Hypertensive heart disease with heart failure; I50.20 Unspecified systolic (congestive) heart failure; E78.5 Hyperlipidemia, unspecified; Z95.2 Presence of prosthetic heart valve; Z95.0 Presence of cardiac pacemaker; I48.0 Paroxysmal atrial fibrillation; E87.1 Hypo-osmolality and hyponatremia; M10.9 Gout, unspecified; Z20.828 Contact with and (suspected) exposure to other viral communicable diseases; Z79.891 Long term (current) use of opiate analgesic
CPT/HCPCS: C1751; G0378; J0133; J3370; J7040; J7050

== ENCOUNTER → 2020-06-03 | Outpatient (CLI) | payer MEDICARE, BC ==
[~2020-06-03] MED LIST changes: +ATIVAN 1MG T1 MG/TAB PO; +TYLENOL 325MG325 MG PO; +ZOVIRAX INJ V1000 MG IV
[2020-06-03 14:13] LABS: BASO % 0.3 % (0.0-2.0); EOS # 0.1 (0.0-0.7); GRAN # 5.3 (1.4-6.5); GRAN % 77.4 % (42.2-75.2); HEMATOCRIT 32.3 % (42.0-52.0); LYMPH % 14.6 % (20.0-51.0); MEAN CELL VOLUME 94 fl (80.0-100.0); MEAN CORPUSCULAR HEMOGLOBIN 32 pg (27.0-31.0); MEAN CORPUSCULAR HGB CONC 34 g/dl (33.0-37.0); MEAN PLATELET VOLUME 10.2 fl (7.4-10.4); MONO # 0.4 (0.1-0.6); MONO % 5.3 % (1.7-9.3); PLATELET COUNT 196 K/mm3 (130-400); RED BLOOD COUNT 3.45 M/mm3 (4.20-5.60)
[2020-06-03 14:26] LABS: BILIRUBIN,TOTAL 0.4 mg/dL (0.0-1.0); CALCIUM 8.8 mg/dL (8.4-10.2); CREATININE, serum 4.19 (0.66-1.25); POTASSIUM 4.1 mmol/L (3.4-5.0); TOTAL PROTEIN 5.2 gm/dL (6.4-8.2)
== END ==
LOC: ZCOL.LAB 11:18
DX: I50.9 Heart failure, unspecified (principal); B00.4 Herpesviral encephalitis; E78.1 Pure hyperglyceridemia

== ENCOUNTER 2020-06-04 10:59 | Emergency (ER) | payer MEDICARE, BC ==
[~2020-06-04] VITALS: Ht 177.8 cm; Wt 100.0 kg
[~2020-06-04 10:59] MED LIST changes: -ATIVAN 1MG T1 MG/TAB PO
[2020-06-04 11:24] LABS: BASO % 0.6 % (0.0-2.0); EOS # 0.1 (0.0-0.7); EOS % 2.1 % (0-4.0); GRAN # 4.5 (1.4-6.5); GRAN % 72.2 % (42.2-75.2); HEMOGLOBIN 11.3 g/dl (13.5-18.0); LYMPH # 1.2 (1.2-3.4); LYMPH % 18.8 % (20.0-51.0); MEAN CELL VOLUME 94 fl (80.0-100.0); MEAN CORPUSCULAR HEMOGLOBIN 32 pg (27.0-31.0); MEAN CORPUSCULAR HGB CONC 34 g/dl (33.0-37.0); MEAN PLATELET VOLUME 8.8 fl (7.4-10.4); MONO # 0.4 (0.1-0.6); MONO % 5.8 % (1.7-9.3); PLATELET COUNT 207 K/mm3 (130-400); RED BLOOD COUNT 3.52 M/mm3 (4.20-5.60); REDCELL DISTRIBUTION WIDTH-CV 12.9 % (11.5-14.5)
[2020-06-04 11:26] LABS: HEMATOCRIT 32.9 % (42.0-52.0)
[2020-06-04 11:32] LABS: PARTIAL THROMBOPLASTIN TIME 56.6 SECONDS (26.0-37.0)
[2020-06-04 11:35] LABS: ALBUMIN 3.4 gm/dL (3.5-5.0); BILIRUBIN,TOTAL 0.6 mg/dL (0.0-1.0); CALCIUM 9.1 mg/dL (8.4-10.2); CREATININE, serum 3.22 (0.66-1.25); INR 7.7 (0.8-3.0); PROTHROMBIN TIME 88.3 SECONDS (9.7-12.8); TOTAL PROTEIN 5.9 gm/dL (6.4-8.2)
[2020-06-04 11:53] LABS: COLLECTION METHOD CLEAN CATCH
[2020-06-04] MEDS ORDERED: COUMADIN 6MG6 MG/TAB PO (12:15)
[2020-06-04] MEDS ORDERED: ZYLOPRIM 300MG300 MG PO (12:15)
[2020-06-04 12:16] LABS: PH 6 (5-8); SQUAMOUS EPITHELIAL 0-2 /hpf; URINE APPEARANCE Clear; URINE BACTERIA None Seen /hpf; URINE BILIRUBIN Negative (NEGATIVE); URINE BLOOD 2+ (NEGATIVE); URINE COLOR Straw; URINE GLUCOSE Negative (NEGATIVE); URINE KETONE Negative (NEGATIVE); URINE LEUKOCYTE ESTERASE Negative (NEGATIVE); URINE NITRATE Negative (NEGATIVE); URINE PROTEIN(semi-quant) Negative (NEGATIVE); URINE UROBILINOGEN Negative (NEGATIVE); URINE WBC 0-2 /hpf
[2020-06-04] MEDS ORDERED: ATIVAN 1MG T1 MG/TAB PO ×2 (15:20→15:22)
[2020-06-04 16:00] VITALS: BP 144/81; PULSE 69; TEMP 98.1
[2020-06-04 16:07] LABS: INR 1.9 (0.8-3.0); PROTHROMBIN TIME 21.6 SECONDS (9.7-12.8)
== END 2020-06-04 16:33 | disposition short-term general hospital (02) ==
LOC: COL.ER 10:59
PROVIDERS: Emergency Medicine
DX: N17.9 Acute kidney failure, unspecified (principal); R79.1 Abnormal coagulation profile; I48.91 Unspecified atrial fibrillation; M10.9 Gout, unspecified; Z79.01 Long term (current) use of anticoagulants
CPT/HCPCS: C9132

== ENCOUNTER → 2020-06-04 | Outpatient (CLI) | payer MEDICARE, BC ==
[2020-06-04 11:12] LABS: ALBUMIN 2.9 gm/dL (3.5-5.0); BILIRUBIN,TOTAL 0.5 mg/dL (0.0-1.0); CALCIUM 8.8 mg/dL (8.4-10.2); CREATININE, serum 3.36 (0.66-1.25); POTASSIUM 3.9 mmol/L (3.4-5.0)
== END ==
LOC: ZCOL.LAB 10:12
PROVIDERS: Family Medicine
DX: N17.2 Acute kidney failure with medullary necrosis (principal)

== ENCOUNTER 2021-06-05 11:32 | Emergency (ER) | payer MEDICARE, BC ==
[~2021-06-05] VITALS: Ht 182.9 cm; Wt 100.0 kg
[~2021-06-05 11:32] MED LIST changes: +ATIVAN 1MG T1 MG/TAB PO
[2021-06-05 12:03] LABS: BASO # 0.1 K/mm3 (0.0-0.2); BASO % 0.6 % (0.0-2.0); EOS # 0.3 K/mm3 (0.0-0.7); EOS % 4.3 % (0-4.0); GRAN # 5.1 K/mm3 (1.4-6.5); GRAN % 65.4 % (42.2-75.2); HEMATOCRIT 39.5 % (42.0-52.0); HEMOGLOBIN 13.4 g/dl (13.5-18.0); LYMPH # 1.8 K/mm3 (1.2-3.4); MEAN CELL VOLUME 95 fl (80.0-100.0); MEAN CORPUSCULAR HEMOGLOBIN 32 pg (27.0-31.0); MEAN CORPUSCULAR HGB CONC 34 g/dl (33.0-37.0); MEAN PLATELET VOLUME 9.9 fl (7.4-10.4); MONO # 0.5 K/mm3 (0.1-0.6); MONO % 6.3 % (1.7-9.3); PLATELET COUNT 136 K/mm3 (130-400); RED BLOOD COUNT 4.17 M/mm3 (4.20-5.60); REDCELL DISTRIBUTION WIDTH-CV 13.1 % (11.5-14.5)
[2021-06-05 12:26] LABS: ALANINE AMINOTRANSFERASE 10 U/L (0-55); ALBUMIN 3.4 gm/dL (3.4-4.8); ALKALINE PHOSPHATASE 79 U/L (40-150); ANION GAP 8 mmol/L (7-16); AST,SGOT 20 U/L (5-34); BILIRUBIN,TOTAL 0.5 mg/dL (0.2-1.2); BLOOD UREA NITROGEN 17 mg/dL (8-26); C-REACTIVE PROTEIN 0.61 mg/dL (0.00-0.50); CALCIUM 9.4 mg/dL (8.4-10.2); CARBON DIOXIDE 23 mmol/L (23-31); CHLORIDE 106 mmol/L (98-107); CREATININE, serum 0.87 mg/dL (0.72-1.25); GLUCOSE 125 mg/dL (70-99); INR 1.8 (0.8-3.0); POTASSIUM 4.7 mmol/L (3.5-4.5); PROTHROMBIN TIME 19.7 SECONDS (9.7-12.8); SODIUM 137 mmol/L (136-145); TOTAL PROTEIN 6.7 gm/dL (6.2-8.1)
[2021-06-05 12:33] LABS: TROPONIN-I < 0.010 ng/mL (0.00-0.033)
[2021-06-05 16:41] VITALS: BP 120/61; PULSE 80
== END 2021-06-05 16:50 | disposition home or self-care (01) ==
LOC: COL.ER 11:32
PROVIDERS: Nurse Practitioner Primary Care
DX: R42 Dizziness and giddiness (principal); E78.5 Hyperlipidemia, unspecified; M10.9 Gout, unspecified; I48.91 Unspecified atrial fibrillation; F41.9 Anxiety disorder, unspecified; Z79.01 Long term (current) use of anticoagulants; Z79.899 Other long term (current) drug therapy
CPT/HCPCS: Q9967

== ENCOUNTER 2021-07-17 08:21 | Day surgery (SDC) | payer MEDICARE, BC ==
[~2021-07-17] VITALS: Ht 182.9 cm; Wt 100.7 kg
[2021-07-17] VITALS (8 sets, daily range): BP systolic 107–143; BP diastolic 43–87; PULSE 69–71; TEMP 98.3
[2021-07-17] MEDS ORDERED: TYLENOL 325MG325 MG PO (09:02)
[2021-07-17 09:04] LABS: HEMATOCRIT 41.2 % (42.0-52.0); HEMOGLOBIN 13.9 g/dl (13.5-18.0); MEAN CELL VOLUME 95 fl (80.0-100.0); MEAN CORPUSCULAR HEMOGLOBIN 32 pg (27-31); MEAN CORPUSCULAR HGB CONC 34 g/dl (33.0-37.0); MEAN PLATELET VOLUME 9.2 fl (7.4-10.4); PLATELET COUNT 160 K/mm3 (130-400); RED BLOOD COUNT 4.36 M/mm3 (4.20-5.60); REDCELL DISTRIBUTION WIDTH-CV 12.4 % (11.5-14.5)
[2021-07-17] MEDS ORDERED: BETAPACE160 MG PO (09:06)
[2021-07-17] MEDS ORDERED: ZESTRIL 10MG10 MG PO (09:07)
[2021-07-17] MEDS ORDERED: MAG-OX 400400 MG/TAB PO (09:08)
[2021-07-17] MEDS ORDERED: XARELTO20 MG PO (09:08)
[2021-07-17] MEDS ORDERED: K-TAB20 PO (09:09)
[2021-07-17] MEDS ORDERED: FLOMAX 0.40.4 MG/CAP PO (09:09)
[2021-07-17 09:14] LABS: INR 1.1 (0.8-3.0)
[2021-07-17 09:23] LABS: CALCIUM 9.5 mg/dL (8.4-10.2); CREATININE, serum 0.88 mg/dL (0.72-1.25); POTASSIUM 4.8 mmol/L (3.5-4.5)
--- NOTE | 2021-07-17 10:42 | NUR ---
SEE MERGE FOR ALL MEDICATION ADMINISTRATION TIMES, INTRA AND POST SEDATION ASSESSMENTS
--- NOTE | 2021-07-17 14:10 | NUR ---
DC instructions reviewed with pt and . Both express understanding. Pt is steady on feet in room. He has tolerated PO intake without issue. Dressing to left upper chest remains clean, dry and intact. individual small group instructor has shown a paced rhythm since return from procedure. INT DC'd with catheter intact. Pt assisted out to 's car by wheelchair.
== END 2021-07-17 14:10 | disposition home or self-care (01) ==
LOC: COL.CAR 08:21
PROVIDERS: Internal Medicine Cardiovascular Disease
DX: Z45.018 Encounter for adjustment and management of other part of cardiac pacemaker (principal); I48.91 Unspecified atrial fibrillation; I35.0 Nonrheumatic aortic (valve) stenosis; I71.4 Abdominal aortic aneurysm, without rupture; R55 Syncope and collapse; E78.5 Hyperlipidemia, unspecified; I10 Essential (primary) hypertension; Z86.73 Personal history of transient ischemic attack (TIA), and cerebral infarction without residual deficits
CPT/HCPCS: C2621; J0690; J2250; J3010

== ENCOUNTER 2022-01-24 18:15 | Emergency (ER) | payer MEDICARE, BC ==
[~2022-01-24] VITALS: Ht 182.9 cm; Wt 102.3 kg
[~2022-01-24 18:15] MED LIST changes: +FLOMAX 0.40.4 MG/CAP PO; +K-TAB20 PO; +MAG-OX 400400 MG/TAB PO; +XARELTO20 MG PO; +ZESTRIL 10MG10 MG PO
[2022-01-24 18:16] VITALS: TEMP 98.3
[2022-01-24 18:27] LABS: BASO # 0.1 K/mm3 (0.0-0.2); BASO % 0.7 % (0.0-2.0); EOS # 0.3 K/mm3 (0.0-0.7); EOS % 3.9 % (0.0-4.0); GRAN # 3.9 K/mm3 (1.4-6.5); GRAN % 56.3 % (42.2-75.2); HEMATOCRIT 39.6 % (42.0-52.0); HEMOGLOBIN 13.9 g/dl (13.5-18.0); LYMPH # 2.1 K/mm3 (1.2-3.4); LYMPH % 30.3 % (20.0-51.0); MEAN CELL VOLUME 92 fl (80.0-100.0); MEAN CORPUSCULAR HEMOGLOBIN 32 pg (27-31); MEAN CORPUSCULAR HGB CONC 35 g/dl (33.0-37.0); MEAN PLATELET VOLUME 9.9 fl (7.4-10.4); MONO # 0.6 K/mm3 (0.1-0.6); MONO % 8.5 % (1.7-9.3); PLATELET COUNT 141 K/mm3 (130-400); RED BLOOD COUNT 4.29 M/mm3 (4.20-5.60); REDCELL DISTRIBUTION WIDTH-CV 12.7 % (11.5-14.5)
[2022-01-24 18:52] LABS: ALBUMIN 3.5 gm/dL (3.4-4.8); BILIRUBIN,TOTAL 0.5 mg/dL (0.2-1.2); CALCIUM 9.3 mg/dL (8.4-10.2); POTASSIUM 4.6 mmol/L (3.5-4.5); TOTAL PROTEIN 6.4 gm/dL (6.2-8.1)
[2022-01-24 18:57] LABS: TROPONIN-I 0.012 ng/mL (0.00-0.033)
[2022-01-24 19:20] VITALS: BP 126/74; PULSE 80
== END 2022-01-24 19:21 | disposition home or self-care (01) ==
LOC: COL.ER 18:15
PROVIDERS: Emergency Medicine
DX: T67.5XXA Heat exhaustion, unspecified, initial encounter (principal); I48.91 Unspecified atrial fibrillation; Z79.01 Long term (current) use of anticoagulants
CPT/HCPCS: J7030